=== PATIENT | male | born 1975 | race Caucasian/White ===

== ENCOUNTER 2020-08-23 06:33 | Emergency (ER) | payer OTHER, SELFPAY ==
[2020-08-23 06:38] VITALS: BP 141/101; PULSE 106; RESP 18; TEMP 36.7; O2SAT 97
--- NOTE | 2020-08-23 08:17 | ED.GENADULT ---
HPI - General Adult General Chief complaint: Unspecified Stated complaint: Hemorroid pain Time Seen by Provider: 08/23/20 07:31 Source: patient and family Mode of arrival: ambulatory Limitations: no limitations History of Present Illness HPI narrative: Patient presents with aggravation of chronic hemorrhoids for the last 24 hours. Patient denies any bleeding, fever, chills. Related Data Home Medications Medication Instructions Recorded Confirmed clonazepam 08/23/20 famotidine 08/23/20 lamotrigine 08/23/20 lamotrigine 08/23/20 lurasidone [Latuda] mg 08/23/20 Allergies Allergy/AdvReac Type Severity Reaction Status Date / Time bupropion Allergy Unknown Other Unverified 08/23/20 06:35 Review of Systems Review of Systems: Narrative: CONSTITUTIONAL: Denies fever, chills, or sweats. EYES: Denies visual changes, redness, or discharge. ENT: Denies rhinorrhea, congestion, sore throat, or otalgia. CARDIOVASCULAR: Denies chest pain, palpitations, or edema. RESPIRATORY: Denies cough or dyspnea. GASTROINTESTINAL: Denies abdominal pain, nausea, vomiting, or diarrhea. GENITOURINARY: Denies dysuria or hematuria. SKIN: Denies rash or itching. MUSCULOSKELETAL: Denies back pain, joint pain, or myalgia. NEUROLOGIC: Denies headache, numbness, or weakness. PSYCHIATRIC: Denies anxiety or depression. Exam Narrative: Exam Narrative: General appearance: Well-developed, well-nourished Skin: Normal color Chest and respiratory: Airway patent, no respiratory distress, no accessory muscle use Heart: Regular rate/rhythm Abdomen: Soft, nontender, no organomegaly, quiet bowel sounds, anal exam showed thrombosed hemorrhoids at 3:00. No active bleeding, severely tender Vascular: Normal peripheral pulses, normal capillary refill. Neurologic: Alert and oriented ?3, [employer] is normal as tested, no gross motor deficit Course Course Emergency Course: Stable Vital Signs Vital signs: Vital Signs Temperature 36.7 C 08/23/20 06:38 Pulse Rate 106 H 08/23/20 06:38 Respiratory Rate 18 08/23/20 06:38 Blood Pressure 141/101 H 08/23/20 06:38 Pulse Oximetry 97 08/23/20 06:38 Temperature 36.7 C 08/23/20 06:38 Pulse Rate 106 H 08/23/20 06:38 Respiratory Rate 18 08/23/20 06:38 Blood Pressure 141/101 H 08/23/20 06:38 Pulse Oximetry 97 08/23/20 06:38 Procedures Other Procedure Procedure 1: Other Procedure: Thrombosed hemorrhoid at 3:00, Betadine, lidocaine 1% with epi, scalpel #11, 1 cm incision, large size blood clot came out, patient feel no pain, immediately, no active bleeding at this time, 4 x 4 gauze placed between the cheeks and patient is ready to go home Medical Decision Making MDM Narrative Medical decision making narrative: Thrombosed hemorrhoids, incision and getting the blood clot out is the plan. Differential Diagnosis Differential Diagnosis: Thrombosed hemorrhoid Vital Signs Vital Signs: Vital Signs Temperature 36.7 C 08/23/20 06:38 Pulse Rate 106 H 08/23/20 06:38 Respiratory Rate 18 08/23/20 06:38 Blood Pressure 141/101 H 08/23/20 06:38 Pulse Oximetry 97 08/23/20 06:38 Temperature 36.7 C 08/23/20 06:38 Pulse Rate 106 H 08/23/20 06:38 Respiratory Rate 18 08/23/20 06:38 Blood Pressure 141/101 H 08/23/20 06:38 Pulse Oximetry 97 08/23/20 06:38 Critical Care Time Critical Care Time Critical Care Time: No Discharge Plan Discharge Clinical Impression: External hemorrhoid, thrombosed Patient Disposition: Home, Self-Care Condition: Improved Instructions: Thrombosed Hemorrhoid (ED) Additional Instructions: Discharge instructions, return if symptoms are worsenin
== END 2020-08-23 08:32 | disposition home or self-care (01) ==
PROVIDERS: Emergency Provider Emergency Medicine; PCP Internal Medicine
DX: K64.5 Perianal venous thrombosis (principal)
CPT/HCPCS: 46083; 99283

== ENCOUNTER 2023-08-13 21:46 | Emergency (ER) | payer OTHER, SELFPAY ==
[2023-08-13 21:49] VITALS: BP 148/89; PULSE 104; RESP 15; TEMP 36; O2SAT 98
--- NOTE | 2023-08-13 23:26 | PC.NURSE ---
Pt ambulated to lead front end developer and stated he was leaving. Pt then ambulated out of the ED.
== END 2023-08-13 21:49 | disposition left against medical advice (07) ==
DX: K64.9 Unspecified hemorrhoids (principal)
CPT/HCPCS: 99199

== ENCOUNTER 2023-08-14 12:06 | Emergency (ER) | payer OTHER, SELFPAY ==
[2023-08-14 12:22] VITALS: BP 131/83; PULSE 87; RESP 16; TEMP 36.4; O2SAT 97
--- NOTE | 2023-08-14 12:34 | ED.GENADULT ---
HPI - General Adult General Chief complaint: Unspecified Stated complaint: Hemroids Time Seen by Provider: 08/14/23 12:34 Source: patient Mode of arrival: ambulatory Limitations: no limitations History of Present Illness HPI narrative: 47-year-old male presents with complaint of pain to rectal area. States he is concerned that he has another hemorrhoid. Has a history of external hemorrhoids. In the past had to have hemorrhoid lanced. In the past has used prescribed suppositories but is out of them. Using [id number] a bright suppositories without relief of symptoms. Went to the ER yesterday to be seen but wait was too long. Patient denies constipation. States that stool is soft and that he is not straining. All systems reviewed and negative except as noted above. Related Data Home Medications Medication Instructions Recorded Confirmed clonazepam 1 mg tablet 1 mg PO DAILY 08/23/20 08/14/23 famotidine 20 mg tablet 20 mg PO DAILY 08/23/20 08/14/23 lamotrigine 100 mg tablet 100 mg PO DAILY 08/23/20 08/14/23 lamotrigine 25 mg tablet 25 mg PO DAILY 08/23/20 08/14/23 lurasidone 60 mg tablet (Latuda) 600 mg PO DAILY 08/23/20 08/14/23 albuterol sulfate 90 mcg/actuation 2 puff inhalation QID 08/14/23 08/14/23 aerosol inhaler atorvastatin 20 mg tablet 20 mg PO DAILY 08/14/23 08/14/23 guanfacine 1 mg tablet 1 mg PO DAILY 08/14/23 08/14/23 loratadine 10 mg tablet 10 mg PO DAILY 08/14/23 08/14/23 montelukast 10 mg tablet mg 08/14/23 Allergies Allergy/AdvReac Type Severity Reaction Status Date / Time bupropion Allergy Unknown Other Verified 08/14/23 12:11 Review of Systems Review of Systems: CONSTITUTIONAL: Denies fever, chills, or sweats. EYES: Denies visual changes, redness, or discharge. ENT: Denies rhinorrhea, congestion, sore throat, or otalgia. CARDIOVASCULAR: Denies chest pain, palpitations, or edema. RESPIRATORY: Denies cough or dyspnea. GASTROINTESTINAL: Denies abdominal pain, nausea, vomiting, or diarrhea. Reports rectal pain, hemorrhoids. GENITOURINARY: Denies dysuria or hematuria. SKIN: Denies rash or itching. MUSCULOSKELETAL: Denies back pain, joint pain, or myalgia. NEUROLOGIC: Denies headache, numbness, or weakness. PSYCHIATRIC: Denies anxiety or depression. All other systems reviewed are negative, except as documented in HPI. PMFSH Comments At time of signature, agree with nursing past medical, surgical, social and family history. There is no relevant family history pertinent to the presenting complaint. Exam Narrative: GENERAL: This is a well-nourished, well-developed patient, in no apparent distress. HEAD: normocephalic, atraumatic. EYES: PERRL. Sclera clear/white. Vision is grossly intact. EARS: External ears normal NOSE: External nose normal NECK: Neck supple, non-tender without lymphadenopathy, masses or thyromegaly. CARDIOVASCULAR: Regular rate and rhythm without murmurs, gallops, or rubs. RESPIRATORY: Clear to auscultation. Breath sounds equal bilaterally. No wheezes, rales, or rhonchi. GASTROINTESTINAL: Abdomen soft, non-tender, nondistended. Bowel sounds are active. No hepato-splenomegaly, or palpable masses. No guarding. External hemorrhoid noted. No bleeding. SKIN: warm, Dry, intact with no suspicious lesions or rash, good texture and turgor. NEURO: awake, alert, and oriented to person, place and time. There were no obvious focal neurologic abnormalities. EXTREMITIES: No joint tenderness, effusion, or edema noted. Course Course Level of Care: Express Care Visit Vital Signs Vital signs: Vital Signs Temperature 36.4 C L 08/14/23 12:22 Pulse Rate 87 08/14/23 12:22 Respiratory Rate 16 08/14/23 12:22 Blood Pressure 131/83 08/14/23 12:22 Pulse Oximetry 97 08/14/23 12:22 Oxygen Delivery Room Air 08/14/23 12:22 Temperature 36.4 C L 08/14/23 12:22 Pulse Rate 87 08/14/23 12:22 Respiratory Rate 16 08/14/23 12:22 Blood Pressure 131/83
== END 2023-08-14 12:50 | disposition home or self-care (01) ==
PROVIDERS: Emergency Provider Nurse Practitioner Family
DX: K64.4 Residual hemorrhoidal skin tags (principal); E78.00 Pure hypercholesterolemia, unspecified; I10 Essential (primary) hypertension; J45.909 Unspecified asthma, uncomplicated; K21.9 Gastro-esophageal reflux disease without esophagitis; F41.9 Anxiety disorder, unspecified; F31.9 Bipolar disorder, unspecified
CPT/HCPCS: 99213; G0463